=== PATIENT | female | born 1960 | race Caucasian/White ===

== ENCOUNTER → 2020-11-27 08:47 | Outpatient (CLI) | payer BC, SELFPAY ==
--- NOTE | ~2020-11-27 | MR_ITS ---
EXAMINATION: MR knee LT wo con DATE: 11/27/2020 09:31 INDICATION: Chronic left knee pain and stiffness TECHNIQUE: Magnetic resonance imaging (MRI) of the left knee was performed without intravenous contra st. Sequences included coronal PD-weighted FSE, coronal PD-weighted FS FSE, sagittal T2-weighted FSE , sagittal PD-weighted FS FSE and axial PD weighted fat saturated FSE. COMPARISON: None. FINDINGS: Medial compartment: Medial meniscus is normal. Articular cartilage is normal. Lateral compartment: Lateral meniscus is normal. Articular cartilage is normal. Patellofemoral compartment: Prominent marrow edema surrounding an intra-articular fracture of the patella with no displacement of the fragment which involves the lateral third of the lateral patellar facet with no fracture gap or incongruity at the articular surface. There does appear to be some deep chondral fissuring within the region of the fracture as well as extending more medially along the lateral facet and apical ridge a nd additional deep fissuring at the medial facet. Trochlear cartilage is normal. Ligaments and tendons: Anterior and posterior cruciate ligaments are normal. The medial collateral ligament and fibular cristobal ateral ligament complex are normal. The extensor mechanism is normal. The visualized medial and later al hamstring tendons as well as the iliotibial band are normal. Fluid: Physiologic amount of fluid in the joint space. No loose osteochondral bodies identified. Osseous/other: In addition at the patellar fracture there is prominent marrow edema along the nonarticular anterolat eral margin of the proximal tibia without evident fracture line consistent with likely posttraumatic bone contusion. There are multiple small scattered foci of fat saturating red marrow reexpansion in t he metadiaphyseal region of the distal femur and proximal tibia. No pathologic marrow replacing proce ss. IMPRESSION: 1. Nondisplaced intra-articular fracture at the lateral patellar facet and bone contusion at the ante rolateral nonarticular margin of the proximal tibia. 2. Deep chondral fissuring at both the medial and lateral patellar facets. Reviewed, dictated and finalized at location B. IMPRESSION: 1. Nondisplaced intra-articular fracture at the lateral patellar facet and bone contusion at the anterolateral nonarticular margin of the proximal tibia. 2. Deep chondral fissuring at both the medial and lateral patellar facets.
== END ==
DX: M25.562 Pain in left knee (principal)
CPT/HCPCS: 73721

== ENCOUNTER → 2021-10-31 07:03 | Outpatient (CLI) | payer BC, SELFPAY ==
--- NOTE | ~2021-10-31 | MR_ITS ---
EXAMINATION: MR knee LT wo con DATE: 10/31/2021 07:42 INDICATION: Anterior left knee pain. TECHNIQUE: Magnetic resonance imaging (MRI) of the left knee was performed without intravenous contra st. Sequences included axial PD-weighted FS FSE, coronal PD-weighted FSE and PD-weighted FS FSE, sagi ttal PD-weighted FSE, and sagittal T2-weighted FS FSE. COMPARISON: Left knee MRI 11/27/2020 FINDINGS: Medial compartment: Medial meniscus is normal. Medial compartment cartilage is normal. Lateral compartment: Lateral meniscus is normal. There is cartilage surface irregularity of tibial condyle involving the c entral articular surface. Femoral cartilage is normal. Patellofemoral compartment: There is shallow partial-thickness cartilage loss of patellar medial and lateral facets. There is kerri p cartilage fissuring of patellar medial and lateral facets. There is an old healed fracture of shirley la involving the lateral facet. Trochlear cartilage is normal. Ligaments and tendons: The anterior and posterior cruciate ligaments are normal. Medial collateral ligament and lateral cristobal ateral ligament complex are normal. The patellar tendon is normal. Fluid: There is no knee joint effusion. There is edema in suprapatellar fat pad. There is mild prepatellar b ursitis. IMPRESSION: 1. Moderate patellar chondrosis. Mild lateral compartment chondrosis. Reviewed, dictated and finalized at location A.
== END ==
PROVIDERS: Visit Provider Orthopaedic Surgery
DX: M70.52 Other bursitis of knee, left knee (principal); M25.462 Effusion, left knee
CPT/HCPCS: 73721